=== PATIENT | female | born 1970 | race Two or more races ===

== ENCOUNTER 2017-04-17 22:03 | Emergency (ER) | payer SELFPAY ==
[2017-04-17 22:36] VITALS: BMI 23.0
[2017-04-17] MEDS ORDERED: SODIUM CHLORIDE 1,000 ML IV STA (22:45)
[2017-04-17] MEDS ORDERED: methylPREDNISolone NA SUCC 125 MG/2 ML VIAL IVPB ONE (22:46)
[2017-04-17] MEDS ORDERED: methylPREDNISolone NA SUCC 125 MG/2 ML VIAL ONE ×2 (23:00→23:56)
[2017-04-17 23:02] LABS: BASOPHIL 0.9 % (0-2.0); EOSINOPHIL 2.4 % (0-4.5); MCH 29.5 pg (25.7-33.7); MCHC 33.2 g/dl (32.0-36.0); MEAN PLT VOLUME 8.6 fl (7.5-11.1); NEUTROPHILS 48.4 % (42.8-82.8); PLATELET COUNT 279 K/MM3 (134-434); RDW 12.4 % (11.6-15.6); WHITE BLOOD COUNT 6.8 K/mm3 (4.0-10.0)
[2017-04-17 23:13] LABS: URINE APPEARANCE CLEAR; URINE BILIRUBIN NEGATIVE (NEGATIVE); URINE BLOOD 3+ (NEGATIVE); URINE COLOR STRAW; URINE GLUCOSE (UA) NEGATIVE (NEGATIVE); URINE KETONE NEGATIVE (NEGATIVE); URINE LEUK ESTERASE NEGATIVE (NEGATIVE); URINE NITRITE NEGATIVE (NEGATIVE); URINE PROTEIN NEGATIVE (NEGATIVE); URINE UROBILINOGEN NEGATIVE E.U./dl (0.2-1.0)
[2017-04-17 23:15] LABS: URINE BACTERIA RARE /hpf (NONE SEEN); URINE RBC <1 /hpf (0-3)
[2017-04-17 23:36] LABS: ALBUMIN 3.6 g/dl (3.4-5.0); ANION GAP 16 (8-16); BILIRUBIN,TOTAL 0.5 mg/dL (0.2-1.0); CALCIUM 8.4 mg/dL (8.5-10.1); CO2 18 mmol/L (21-32); CREATININE 0.9 mg/dL (0.55-1.02); GLUCOSE,RANDOM 188 mg/dL (74-106); SGOT/AST 16 U/L (15-37); SGPT/ALT 20 U/L (12-78); TOT PROT 6.5 g/dl (6.4-8.2)
[2017-04-17 23:38] LABS: ALK PHOS 48 U/L (45-117)
--- NOTE | 2017-04-18 03:37 | PDOC ---
History of Present Illness - General Chief Complaint: Allergic Reaction Stated Complaint: ALLERGIC REACTION Time Seen by Provider: 04/17/17 22:30 History Source: Significant Other Exam Limitations: Clinical Condition - History of Present Illness Initial Comments: 04/18/17 03:32 47yo Female patient with no significant past medical history presents to ED via EMS from home for reported allergic reaction. 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 After parade, patient was home drinking beer and ate a cookie that contained coconut. Patient began experiencing allergic reaction, trouble breathing. states she passed out became unresponsive with shallow breathing, he administered Epi-Pen. Enroute to ED EMS gave patient Benadryl IV and NS IVF. EMS reports patient able to arouse using sternal rub. He denies patient having any other medical problems. Past History - Travel Traveled outside of the country in the last 30 days: No Close contact w/someone who was outside of country & ill: No - Past Medical History Allergies/Adverse Reactions: Allergies Allergy/AdvReac Type Severity Reaction Status Date / Time coconut oil Allergy Verified 04/17/17 22:31 Home Medications: Ambulatory Orders Albuterol Sulfate Inhaler - [Ventolin Hfa Inhaler -] 1 - 2 inh PO Q4H PRN Epinephrine [Epipen] 0.3 mg IJ ASDIR PRN #1 auto.injct 04/18/17 Asthma: Yes (seasonal allergies) Other medical history: miscarrigage x's 4 - Psycho/Social/Smoking Cessation Hx Suicidal Ideation: No Smoking History: Unknown if ever smoked Review of Systems - Review of Systems Able to Perform ROS?: Yes Is the patient limited French proficient: No Constitutional: No: Chills, Fever HEENTM: No: Throat Swelling, Mouth Swelling Respiratory: Yes: Other (Trouble Breathing). No: Cough, Stridor, Wheezing Cardiac (ROS): No: Chest Pain, Syncope ABD/GI: No: Constipated, Diarrhea, Nausea, Poor Appetite, Poor Fluid Intake, Vomiting Neurological: Yes: Other (Unresponsive). No: Headache All Other Systems: Reviewed and Negative *Physical Exam - Vital Signs Last Vital Signs Temp Pulse Resp BP Pulse Ox 88 18 119/66 99 04/17/17 22:35 04/17/17 22:35 04/17/17 22:35 04/17/17 22:35 - Physical Exam General Appearance: Yes: Nourished, Appropriately Dressed. No: Apparent Distress, Mild Distress, Moderate Distress, Severe Distress HEENT: positive: EOMI, LOIS (Pinpoint pupils), Normal ENT Inspection, Normal Voice, Symmetrical, TMs Normal, Pharynx Normal. negative: Scleral Icterus (L), Pharyngeal Erythema, Tonsillar Erythema, Nasal Congestion, Rhinorrhea, TM Bulging, TM Dull, TM Erythema Neck: positive: Trachea midline, Normal Thyroid, Supple. negative: Rigid, Decreased range of motion, Stridor, Lymphadenopathy (R), Lymphadenopathy (L) Respiratory/Chest: positive: Lungs Clear, Normal Breath Sounds. negative: Chest Tender, Respiratory Distress, Accessory Muscle Use, Labored Respiration, Rapid RR, Rhonchi, Stridor, Wheezing Cardiovascular: positive: Regular Rhythm, Regular Rate Gastrointestinal/Abdominal: positive: Normal Bowel Sounds, Soft. negative: Distended, Guarding, Rebound, Tenderness Musculoskeletal: positive: Normal Inspection. negative: CVA Tenderness, Vertebral Tenderness Extremity: positive: Normal Capillary Refill, Normal Inspection, Normal Range of Motion. negative: Pedal Edema, Swelling, Calf Tenderness, Erythema, Inflammation Integumentary: positive: Normal Color, Dry, Warm Neurologic: positive: Alert, Respond to painful stimul. negative: Fully Oriented, Facial Droop, Confused ED Treatment Course - LABORATORY CBC & Chemistry Diagram: 04/17/17 22:50 04/17/17 22:50 - ADDITIONAL ORDERS Additional order review: Laboratory Results 04/17/17 04/17/17 23:00 22:50 Sodium 141 Potassium 3.3 L Chloride 107 Carbon Dioxide 18 L Anion Gap 16 BUN 11 Creatinine 0.9 Creat Clearance w eGFR > 60 Random Glucose 188 H Calcium 8.4 L Total Bilirubin 0.5 AST 16 ALT 20 Alkaline Phosphatase 48 Total Protein 6.5 Albumin 3.6 Beta HCG, Quant < 1.0 Urine Color Straw Urine Appearance Clear Urine pH 7.0 Urine Protein Negative Urine Glucose (UA) Negative Urine Ketones Negative Urine Blood 3+ H Urine Nitrite Negative Urine Bilirubin Negative Urine Urobilinogen Negative Ur Leukocyte Esterase Negative Urine RBC <1 Urine WBC None Ur Epithelial Cells Rare Urine Bacteria Rare 04/17/17 22:50 RBC 4.12 MCV 89.0 MCHC 33.2 RDW 12.4 MPV 8.6 Neutrophils % 48.4 Lymphocytes % 41.3 H Monocytes % 7.0 Eosinophils % 2.4 Basophils % 0.9 - RADIOLOGY Radiology Studies Ordered: Category Date Time Status HEAD CT WITHOUT CONTRAST [CT] Stat CT Scan 04/18/17 00:02 Taken CHEST PA & LAT [RAD] Stat Radiology 04/18/17 02:06 Taken - Medications Given in the ED: ED Medications Discontinued Medications Generic Name Dose Route Start Last Admin Trade Name Freq PRN Reason Stop Dose Admin Sodium Chloride 1,000 mls @ 1,000 mls/hr 04/17/17 22:45 04/17/17 22:58 Normal Saline - IV 04/17/17 23:44 1,000 mls/hr ASDIR STA Administration Methylprednisolone Sodium Succinate 125 mg 04/17/17 22:46 04/17/17 23:58 Solu-Medrol - IVPB 04/17/17 22:47 125 mg ONCE ONE Administration Medical Decision Making - Medical Decision Making 04/18/17 03:41 Patient awake, alert, easily aroused at this time. Head CT-Neg. Labs WNL. Will d /c home with Epi Pen. *DC/Admit/Observation/Transfer Diagnosis at time of Disposition: Allergic reaction Qualifiers: Encounter type: initial encounter Qualified Code(s): T78.40XA - Allergy, unspecified, initial encounter - Discharge Dispostion Disposition: HOME Condition at time of disposition: Improved Admit: No - Prescriptions Prescriptions: Epinephrine [Epipen] 0.3 mg IJ ASDIR PRN #1 auto.injct PRN Reason: ALLERGIC REACTION - Patient Instructions Printed Discharge Instructions: Anaphylaxis, DI for Food Allergy Additional Instructions: FOLLOW UP WITH YOUR DOCTOR NEEDED. GET LOTS OF REST. DRINK PLENTY FLUIDS. USE EPI-PEN NEEDED. RETURN IF ANY CONCERNS FOR FURTHER EVALUATION. Print Language: [place] - Post Discharge Activity Work/School Note: Back to Work
[2017-04-18 03:50] VITALS: BP 128/72; PULSE 81
== END 2017-04-18 03:53 | disposition home or self-care (01) ==
LOC: JER 22:03
PROC: 3E0333Z Introduction of Anti-inflammatory into Peripheral Vein, Percutaneous Approach (ICD-10-PCS; principal; 2017-04-17)
PROC: 3E0337Z Introduction of Electrolytic and Water Balance Substance into Peripheral Vein, Percutaneous Approach (ICD-10-PCS; 2017-04-17)
DX: T78.40XA Allergy, unspecified, initial encounter (principal); X58.XXXA Exposure to other specified factors, initial encounter
CPT/HCPCS: 36415; 70450-TC; 71020-TC; 80053; 81003; 81015; 84702; 85025; 99284-25